=== PATIENT | male | born 1955 | race American Indian/Alaskan Native ===

== ENCOUNTER 2020-12-15 12:18 | Emergency (ER) | payer MEDICARE, MEDICAID ==
[~2020-12-15] VITALS: Ht 193 cm; Wt 110.0 kg
[2020-12-15 12:36] VITALS: BP 118/72
[2020-12-15] MEDS ORDERED: CEPH250T PO (14:43)
[2020-12-15] MEDS ORDERED: IBUP-1984 PO (14:43)
== END 2020-12-15 14:59 | disposition home or self-care (01) ==
LOC: ER 12:19
DX: L03.114 Cellulitis of left upper limb (principal); M10.9 Gout, unspecified; Z79.2 Long term (current) use of antibiotics; Z79.899 Other long term (current) drug therapy
CPT/HCPCS: 99283